=== PATIENT | male | born 1965 | race Caucasian/White ===

== ENCOUNTER 2019-05-26 17:55 | Emergency (ER) | payer OTHER ==
--- NOTE | 2019-05-26 18:08 | ED ---
Palpitations / Dysrhythmia - HPI Summary HPI Summary: The patient is a 53 y/o M arriving by ambulance to [facility] with a chief complaint of fluttering palpitations onset since yesterday. He reports that the palpitations have become more constant since beginning yesterday, and he also since developed numbness in the fingers of the left hand. He additionally c/o headaches and SOB. He denies any chest pain, diaphoresis, or nausea. Symptoms currently rated 5/10 in severity. EMS did not administer any medications as treatment [employer]. He has felt these sensations before but has not been diagnosed with any arrhythmia. PMHx: [place]. Current every day smoker, previous EtOH use, no substance use. Medications reviewed. Allergies noted. - History of Current Complaint Chief Complaint: EDChestPainROMI Hx Obtained From: Patient Onset/Duration: Lasting Hours - since yesterday, Still Present Severity Initially: Mild Severity Currently: Moderate Character: Fluttering Aggravating: Nothing Alleviating: Nothing Associated Signs & Symptoms: Shortness of Breath - Allergy/Home Medications Home Medications: Home Medications NK [No Home Medications Reported] 05/26/19 [History Confirmed 05/26/19] PMH/Surg Hx/FS Hx/Imm Hx Cardiovascular History: Reports: Hx Myocardial Infarction Respiratory History: Denies: Hx Asthma - Surgical History Surgical History: Yes Surgery Procedure, Year, and Place: hand surgery Infectious Disease History: No Infectious Disease History: Denies: Traveled Outside the [place] in Last 30 Days - Family History Known Family History: Positive: Cardiac Disease - Social History Alcohol Use: None Hx Substance Use: No Substance Use Type: Reports: None Hx Tobacco Use: Yes Smoking Status (MU): Current Every Day Smoker Review of Systems Negative: Skin Diaphoresis Positive: Palpitations. Negative: Chest Pain Positive: Shortness Of Breath Negative: Nausea Positive: Headache All Other Systems Reviewed And Are Negative: Yes Physical Exam - Summary Physical Exam Summary: Constitutional: Well-developed, Well-nourished, Alert. (-) Distressed Skin: Warm, Dry HENT: Normocephalic; Atraumatic Eyes: Conjunctiva normal Neck: Musculoskeletal ROM normal neck. (-) JVD, (-) Stridor, (-) Tracheal deviation Cardio: Rhythm regular, rate normal, Heart sounds normal; Intact distal pulses; Radial pulses are 2+ and symmetric. (-) Murmur Pulmonary/Chest wall: Effort normal. (-) Respiratory distress, (-) Wheezes, (-) Rales Abd: Soft, (-) tenderness, (-) Distension, (-) Guarding, (-) Rebound Musculoskeletal: (-) Edema Lymph: (-) Cervical adenopathy Neuro: Alert, Oriented x3 Psych: Mood and affect Normal Triage Information Reviewed: Yes Vital Signs On Initial Exam: Initial Vitals Temp Pulse Resp BP Pulse Ox 98.4 F 82 16 168/93 97 05/26/19 17:56 05/26/19 17:56 05/26/19 17:56 05/26/19 17:56 05/26/19 17:56 Vital Signs Reviewed: Yes Procedures - Sedation Patient Received Moderate/Deep Sedation with Procedure: No Diagnostics - Vital Signs Vital Signs Temp Pulse Resp BP Pulse Ox 05/26/19 17:56 98.4 F 82 16 168/93 97 - Laboratory Result Diagrams: 05/26/19 18:08 05/26/19 18:08 Lab Statement: Any lab studies that have been ordered have been reviewed, and results considered in the medical decision making process. - Radiology CXR Radiology Interpretation Completed By: ED Physician Summary of Radiographic Findings: No acute process. ED physician has reviewed and interpreted this report. Pending official read. - EKG 1801 Cardiac Rate: NL - 80 bpm EKG Rhythm: Sinus Rhythm Summary of EKG Findings: EKG at 1801 reveals normal sinus rhythm at 80 bpm. Multiple premature atrial complexes. No STEMI. ED physician has reviewed and interpreted this EKG. Re-Evaluation - Re-Evaluation First Eval Re-Evaluation Time: 19:20 Comment: We discussed results and plan for discharge. Course/Dx - Course Course Of Treatment: Patient is here with palpitations that started today. Irish has felt swelling the past but has never been diagnosed with any arrhythmia. Upon arrival, patient was in sinus rhythm with multiple PACs. Patient had blood performed which was grossly unremarkable. Patient had negative troponin. Patient negative chest x-ray. Patient did not have any chest pain. Patient was given cardiology follow-up for possible Holter monitor. - Diagnoses Provider Diagnoses: Palpitations Discharge ED - Sign-Out/Discharge Documenting (check all that apply): Patient Departure - Patient will be discharged home. - Discharge Plan Condition: Stable Disposition: HOME Patient Education Materials: Heart Palpitations (DC) Referrals: Pb Garcia MD [Medical Doctor] - [facility] [Outside] - 3 Days Additional Instructions: Please follow up with Dr. Garcia from cardiology for possible Holter monitor. Come back to the emergency department for worsening chest pain, trouble breathing, or any other concerning symptoms. Follow up with your primary care provider in 1-3 days. - Billing Disposition and Condition Condition: STABLE Disposition: Home - Attestation Statements Document Initiated by Evin: Yes Documenting Scribe: Kendy Lloyd Provider For Whom Evin is Documenting (Include Credential): Dr. Aiden Lauren MD Scribe Attestation: Kendy Galvan scribed for Dr. Aiden Lauren MD on 05/26/19 at 2103. Scribe Documentation Reviewed: Yes Provider Attestation: The documentation as recorded by the Kendy east accurately reflects the service I personally performed and the decisions made by me, Dr. Aiden Lauren MD Status of Scribe Document: Viewed
[2019-05-26 18:17] LABS: ABS Eosinophils 0.3 10^3/ul (0-0.6); ABS Lymphocytes 2.4 10^3/ul (1.0-4.8); ABS Monocytes 0.7 10^3/ul (0-0.8); ABS Neutrophils 2.7 10^3/ul (1.5-7.7); Eosinophil % 4.2 %; Hematocrit 37 % (42-52); Hemoglobin 13.1 g/dL (14.0-18.0); Lymphocyte % 40.1 %; Mean Corpuscular HGB Conc 35 g/dL (31-36); Mean Corpuscular Hemoglobin 31 pg (27-31); Mean Corpuscular Volume 88 fL (80-94); Mean Platelet Volume 8.4 fL (7.4-10.4); Nucleated Red Blood Cells % 0.1; Platelet Count 165 10^3/uL (150-450); Red Blood Count 4.25 10^6 /uL (4.18-5.48); Red Cell Distribution Width 14 % (10-15); White Blood Count 6.1 10^3/uL (3.5-10.8)
[2019-05-26 18:34] LABS: Albumin 4.2 g/dL (3.2-5.2); Albumin/Globulin Ratio 1.4 (1-3); BUN/Creatinine Ratio 15.6 (8-20); Calcium 9.4 mg/dL (8.6-10.3); EGFR African American 74.9 (>60); EGFR Non-African American 61.9 (>60); Globulin 2.9 g/dL (2-4); Potassium 3.9 mmol/L (3.5-5.0); Total Bilirubin 0.4 mg/dL (0.2-1.0); Total Protein 7.1 g/dL (6.4-8.9)
[2019-05-26 18:49] LABS: TSH (Thyroid Stimulating Horm) 5.18 mcIU/mL (0.34-5.60)
[2019-05-26 18:51] LABS: Free T4 0.73 ng/dL (0.61-1.12)
[2019-05-26 20:08] VITALS: BP 134/78
== END 2019-05-26 20:07 | disposition home or self-care (01) ==
LOC: ED 17:55
DX: R00.2 Palpitations (principal); I25.2 Old myocardial infarction; F17.200 Nicotine dependence, unspecified, uncomplicated
CPT/HCPCS: 36415; 71045; 80053; 83735; 83880; 84439; 84443; 84484; 85025; 93005; 99284